=== PATIENT | female | born 1985 | race Two or more races ===

== ENCOUNTER 2024-04-21 08:24 | Emergency (ER) | payer MEDICAID, SELFPAY ==
--- NOTE | 2024-04-21 08:43 | XR_ITS ---
EXAMINATION: Ankle, right 3 views . Technique: Ankle AP, oblique, lateral 3 views Date and time of exam: April 21, 2024 0902 hrs. Indications: Running injury to the ankle yesterday ankle pain Findings: No fracture or dislocation Moderate osteoarthritis tibiotalar joint Impression: No fracture or dislocation
--- NOTE | 2024-04-21 08:43 | XR_ITS ---
Examination: Foot, right, 3 views Technique: AP, oblique, lateral views foot, 3 views Date and time of exam: April 21, 2024 0829 hrs. Indications: Running injury to the foot yesterday, foot pain Findings: No acute fracture No dislocation Moderate osteoarthritis tibiotalar joint Impression: No acute fracture
[2024-04-21 08:44] VITALS: BP 167/96; PULSE 82; RESP 19; TEMP 36.8; O2SAT 99; BMI 43.4
--- NOTE | 2024-04-21 09:56 | EDNOTE_ITS ---
Lower Extremity Injury RME/HPI General Chief Complaint: Extremity Injury, Lower Stated Complaint: RIGHT FOOT PAIN Time Seen by Provider: 04/21/24 08:26 Arrival date/time: 04/21/24 08:24 38-year-old female who reports she walks approximately 4 miles a day reports to the emergency department today complaints of right foot and ankle pain patient reports no direct trauma or injury patient reports no calf pain no upper leg pain Limitations: no limitations Related Data Previous Rx's ?Medication ?Instructions ?Recorded cephalexin 500 mg capsule (Keflex) 500 mg PO TID Infection #21 caps 03/14/20 acetaminophen 500 mg capsule 1,000 mg (2 x 500 mg) PO Q6H PRN 06/05/21 fever or pain #30 caps ibuprofen 800 mg tablet 800 mg PO TID PRN pain #30 tabs 06/05/21 sulfamethoxazole 800 1 tab PO BID #14 tabs 06/05/21 mg-trimethoprim 160 mg tablet (Bactrim DS) hydrocodone 5 mg-acetaminophen 325 1 tab PO BID PRN pain #6 tabs 04/21/24 mg tablet Allergies Allergy/AdvReac Type Severity Reaction Status Date / Time No Known Allergies Allergy Verified 03/11/20 20:17 Review of Systems Review of Systems Systems Reviewed: All systems reviewed, normal except as documented Constitutional Constitutional: Reports system reviewed and no additional complaints, except as documented, Denies fever(s) and Denies headache(s) Eyes Eyes: Reports system reviewed and no additional complaints, except as documented and Denies blurry vision ENT Ears, Nose, Mouth, and Throat: Reports system reviewed and no additional complaints, except as documented, Denies headache(s), Denies nasal congestion and Denies nasal discharge Cardiovascular Cardiovascular: Reports system reviewed and no additional complaints, except as documented, Denies chest pain and Denies dyspnea Respiratory Respiratory: Reports system reviewed and no additional complaints, except as documented, Denies chest congestion, Denies cough and Denies dyspnea Gastrointestinal Gastrointestinal: Reports system reviewed and no additional complaints, except as documented and Denies abdominal pain Musculoskeletal Musculoskeletal: Reports system reviewed and no additional complaints, except as documented, Reports arthralgias, Denies deformity and Reports joint swelling Integumentary/Breasts Skin/Breast: Reports system reviewed and no additional complaints, except as documented and Denies rash Neurologic Neurologic: Reports system reviewed and no additional complaints, except as documented, Reports as per HPI and Denies headache(s) Past Medical History Past Medical History NEUROLOGIC: Negative Neurological Disorders CARDIAC: Negative Cardiac Disorders ED Exam General Limitations: Present no limitations General appearance: Present alert and in no apparent distress Head Head exam: Present atraumatic, normocephalic and normal inspection Eye Eye exam: Present normal appearance, PERRL and EOMI ENT ENT exam: Present normal exam, normal oropharynx and mucous membranes moist Neck Neck exam: Present normal inspection, full ROM and trachea midline Chest Chest inspection: Present normal inspection and symmetric chest wall rise Respiratory Respiratory exam: Present normal lung sounds bilaterally Cardiovascular Cardiovascular exam: Present regular rate, normal rhythm and normal heart sounds Abdominal Exam Abdominal exam: Present soft and normal bowel sounds Extremities Exam Extremities exam: Present full ROM, tenderness, normal capillary refill and joint swelling; Absent pedal edema or calf tenderness Back Exam Back exam: Present normal inspection and full ROM Neurological Exam Neurological exam: Present alert, oriented X3 and CN II-XII intact Psychiatric Psychiatric exam: Present normal affect and normal mood Skin Skin exam: Present warm, dry, intact and normal color Course Quality Measures none Orders Category Date Time Status XR ankle comp RT min 3V Stat Exams 04/21/24 08:43 Completed XR foot comp RT min 3V Stat Exams 04/21/24 08:43 Completed Vital Signs Vital signs: Vital Signs Temperature 98.3 F 04/21/24 08:44 Pulse Rate 82 04/21/24 08:44 Respiratory Rate 19 04/21/24 08:44 Blood Pressure 167/96 H 04/21/24 08:44 Pulse Oximetry (%) 99 04/21/24 08:44 Oxygen Delivery Method Room Air 04/21/24 08:44 O2 saturation 99% room air within normal limits Extremity Injury, Lower MDM Narrative MDM Narrative:: 38-year-old female who reports she walks approximately 4 miles a day reports to the emergency department today complaints of right foot and ankle pain patient reports no direct trauma or injury patient reports no calf pain no upper leg pain On exam patient is mild swelling around the right ankle patient has no warmth no redness patient assures me she has no calf pain X-ray of right foot and ankle obtained no acute fracture dislocation noted Patient placed in Piotr wrap and given crutches Patient discharged home with pain medication Patient discharged home in no distress to follow-up with primary care doctor in the next 24 to 48 hours and for any worsening symptoms to return to the ER immediately Patient data External records reviewed:: [facility] previous records Clinical information provided by:: patient Social determinants that could affect healthcare access:: none Patient has the following chronic illnesses:: See history How is presenting disease/condition affected by chronic disease/condition?: uneffected by Evaluation data The following diagnostics were reviewed and interpreted by me:: radiology exam(s) Lab and/or radiology exams considered but not ordered:: Radiology obtained Interpretation Summary: Reviewed by me Medications / Prescriptions Medications or Prescriptions considered but not ordered:: Given Medication administrations:: Given Consultations Consultation(s) initiated? (list below): No Diagnosis Extremity Injury, Lower Differential Diagnosis: ankle sprain and strain and ankle fracture Most likely diagnosis given after review of the tests above:: Foot sprain, ankle sprain Admission Indicated Admission indicated?: not indicated Admission Request Was there a request for admission?: No Disposition Plan Disposition Plan: Discharge Discharge Attestation Discharge Attestation: The patient and all family members were given an opportunity to ask questions and understood the discharge instructions. Discharge instructions specifically effects, indications for sooner follow up or return to the emergency department, and the expected course of current diagnosis. Patient condition: Stable Discharge Plan Plan Patient Disposition: HOME (Self Care) Disposition Comment: Stable Prescriptions/Referrals Prescriptions/Med Rec: New hydrocodone-acetaminophen 5-325 mg tablet 1 tab PO BID MDD 10 PRN (Reason: pain) Qty: 6 0RF No Action ibuprofen 800 mg tablet 800 mg PO TID PRN (Reason: pain) Qty: 30 0RF sulfamethoxazole-trimethoprim [Bactrim DS] 800-160 mg tablet 1 tab PO BID Qty: 14 0RF acetaminophen 500 mg capsule 1,000 mg PO Q6H PRN (Reason: fever or pain) Qty: 30 0RF cephalexin [Keflex] 500 mg Capsule 500 mg PO TID Qty: 21 0RF Referrals: Wesley Ang MD [Primary Care Provider] - 04/23/24 Problem List Clinical Impression: Acute ankle pain Patient/Caregiver Discharge Instructions Education Materials: ED Foot Sprain Additional Instructions: Please follow up with your primary care doctor in the next 24-48hrs for any worsening symptoms return here immediately Print Language: Algerian Stand Alone Forms: [facility] Award Info., Work/School Release, Patient Portal Info Letter PA/[facility] Supervising Physician KAYCE/RONALD Supervising Physician: Dr. Pierre
== END 2024-04-21 10:11 | disposition home or self-care (01) ==
PROVIDERS: Emergency Provider Emergency Medicine; PCP Family Medicine
DX: S99.911A Unspecified injury of right ankle, initial encounter (principal); S99.921A Unspecified injury of right foot, initial encounter; X58.XXXA Exposure to other specified factors, initial encounter; Y93.02 Activity, running
CPT/HCPCS: 73610; 73630; 99283

== ENCOUNTER 2024-07-10 10:39 | Emergency (ER) | payer MEDICAID, SELFPAY ==
--- NOTE | 2024-07-10 10:49 | XR_ITS ---
Examination: Duplex scan of the lower extremity, unilateral right complete Date and time of exam: July 10, 2024 1109 hours INDICATIONS: Right leg swelling redness and pain beginning 4 days ago Technique: Duplex scan of the extremity veins using B-mode/grayscale imaging and Doppler spectral analysis and color flow Attention is directed to internal echogenicity, compression and augmentation involving these veins, color flow assessment, spectral analysis Findings: Major deep venous structures in the extremity demonstrate normal course and caliber. There is no evidence of deep vein thrombosis. Normal color flow and spectral analysis Impression: Negative for DVT.. Thrombus in a superficial vessel in the upper mid thigh
[2024-07-10 10:52] VITALS: BP 143/88; PULSE 86; RESP 20; TEMP 36.6; O2SAT 95; BMI 45.8
--- NOTE | 2024-07-10 11:57 | EDNOTE_ITS ---
<Statement entered by Madie Bill MD - 07/10/24 14:04> As co-signing physician, I was present and available for consult prn. I concur with the plan and care as documented by the midlevel provider. ED Extremity Problem RME/HPI General Chief complaint: Extremity Problem,Nontraumatic Stated complaint: BLOOD CLOT PAIN RIGHT THIGH X SAT Time Seen by Provider: 07/10/24 11:56 Arrival date/time: 07/10/24 10:39 38-year-old female presents emergency department today complaints of engorged varicose vein right upper leg ongoing since Tuesday patient concerned about blood clot patient came to rule out blood clot Limitations: no limitations Related Data Previous Rx's ?Medication ?Instructions ?Recorded cephalexin 500 mg capsule (Keflex) 500 mg PO TID Infec tion #21 caps 03/14/20 acetaminophen 500 mg capsule 1,000 mg (2 x 500 mg) PO Q6H PRN 06/05/21 fever or pain #30 caps ibuprofen 800 mg tablet 800 mg PO TID PRN pain #30 t abs 06/05/21 sulfamethoxazole 800 1 tab PO BID #14 tabs mg-trimethoprim 160 mg tablet (Bactrim DS) hydrocodone 5 mg-acetaminophen 325 1 tab PO BID PRN pa in #6 tabs 04/21/24 mg tablet Allergies Allergy/AdvReac Type Severity Reaction Status Date / Time No Known Allergies Allergy Verified 07/10/24 10:40 Review of Systems Review of Systems Systems Reviewed: All systems reviewed, normal except as documented Constitutional Constitutional: Reports system reviewed and no additional complaints, except as documented, Denies fever(s) and Denies headache(s) Eyes Eyes: Reports system reviewed and no additional complaints, except as documented and Denies blurry vision ENT Ears, Nose, Mouth, and Throat: Reports system reviewed and no additional complaints, except as documented, Denies headache(s), Denies nasal congestion and Denies nasal discharge Cardiovascular Cardiovascular: Reports system reviewed and no additional complaints, except as documented, Denies chest pain and Denies dyspnea Respiratory Respiratory: Reports system reviewed and no additional complaints, except as documented, Denies chest congestion, Denies cough and Denies dyspnea Gastrointestinal Gastrointestinal: Reports system reviewed and no additional complaints, except as documented and Denies abdominal pain Integumentary/Breasts Skin/Breast: Reports system reviewed and no additional complaints, except as documented, Denies rash and Reports other (Engorged varicose vein right upper leg) Neurologic Neurologic: Reports system reviewed and no additional complaints, except as documented, Reports as per HPI and Denies headache(s) Past Medical History Past Medical History NEUROLOGIC: Negative Neurological Disorders or Seizures CARDIAC: Negative Cardiac Disorders or Congestive Heart Failure RESPIRATORY: Negative Chronic Obstructive Pulmonary Disease (COPD) or Asthma GENITOURINARY: Negative Renal Disease REPRODUCTIVE: Negative Previous Pregnancies ENDOCRINE: Negative Diabetes Mellitus Type 1 or Diabetes Mellitus Type 2 HEMATOLOGIC: Negative Sickle Cell Disease OTHER HISTORY: Negative Blood Transfusions (N/A), Blood Transfusion Reaction (N/A) or Anesthesia Reactions (N/A) Social History SMOKING STATUS: Never smoker ED Exam General Limitations: Present no limitations General appearance: Present alert and in no apparent distress Head Head exam: Present atraumatic Eye Eye exam: Present normal appearance, PERRL and EOMI ENT ENT exam: Present normal exam, normal oropharynx and mucous membranes moist Neck Neck exam: Present normal inspection, full ROM and trachea midline Chest Chest inspection: Present normal inspection and symmetric chest wall rise Respiratory Respiratory exam: Present normal lung sounds bilaterally Cardiovascular Cardiovascular exam: Present regular rate, normal rhythm and normal heart sounds Abdominal Exam Abdominal exam: Present soft and normal bowel sounds Extremities Exam Extremities exam: Present full ROM, tenderness, normal capillary refill and other (Engorged varicose vein right upper leg) Back Exam Back exam: Present normal inspection and full ROM Neurological Exam Neurological exam: Present alert, oriented X3 and CN II-XII intact Psychiatric Psychiatric exam: Present normal affect and normal mood Skin Skin exam: Present warm, dry, intact and normal color Course Quality Measures none Orders Category Date Time Status US venous doppler LE RT Stat Exams 07/10/24 10:49 Completed Vital Signs Vital signs: Vital Signs Temperature 97.8 F 07/10/24 10:52 Pulse Rate 86 07/10/24 10:52 Respiratory Rate 20 07/10/24 10:52 Blood Pressure 143/88 H 07/10/24 10:52 Pulse Oximetry (%) 95 07/10/24 10:52 Oxygen Delivery Method Room Air 07/10/24 10:52 O2 saturation 95% room air within normal limits Extremity Problem MDM Narrative MDM Narrative:: 38-year-old female presents emergency department today complaints of engorged varicose vein right upper leg ongoing since Tuesday patient concerned about blood clot patient came to rule out blood clot On exam patient well-appearing patient's not appear ill or toxic patient does not appear in acute distress On exam patient appears to have engorged varicose vein right upper leg Ultrasound obtained no acute DVT noted Patient discharged home in no distress to follow-up with primary care doctor in the next 24 to 48 hours and for any worsening symptoms to return to the ER immediately Patient data External records reviewed:: [facility] previous records Clinical information provided by:: patient Social determinants that could affect healthcare access:: none Patient has the following chronic illnesses:: See history How is presenting disease/condition affected by chronic disease/condition?: uneffected by Evaluation data The following diagnostics were reviewed and interpreted by me:: radiology exam(s) Lab and/or radiology exams considered but not ordered:: Radiology obtain Interpretation Summary: Reviewed by me Medications / Prescriptions Medications or Prescriptions considered but not ordered:: Given no meds Medication administrations:: Given no meds Consultations Consultation(s) initiated? (list below): No Diagnosis Extremity Problem Differential Diagnosis: superficial thrombophlebitis, deep venous thrombosis of upper extremity and deep vein thrombosis of lower extremity Most likely diagnosis given after review of the tests above:: Superficial thrombus Admission Indicated Admission indicated?: not indicated Admission Request Was there a request for admission?: No Disposition Plan Disposition Plan: Discharge Discharge Attestation Discharge Attestation: The patient and all family members were given an opportunity to ask questions and understood the discharge instructions. Discharge instructions specifically effects, indications for sooner follow up or return to the emergency department, and the expected course of current diagnosis. Patient condition: Stable Discharge Plan Plan Patient Disposition: HOME (Self Care) Disposition Comment: Table Prescriptions/Referrals Prescriptions/Med Rec: No Action ibuprofen 800 mg tablet 800 mg PO TID PRN (Reason: pain) Qty: 30 0RF sulfamethoxazole-trimethoprim [Bactrim DS] 800-160 mg tablet 1 tab PO BID Qty: 14 0RF acetaminophen 500 mg capsule 1,000 mg PO Q6H PRN (Reason: fever or pain) Qty: 30 0RF cephalexin [Keflex] 500 mg Capsule 500 mg PO TID Qty: 21 0RF hydrocodone-acetaminophen 5-325 mg tablet 1 tab PO BID MDD 10 PRN (Reason: pain) Qty: 6 0RF Referrals: Wesley Ang MD [Primary Care Provider] - In 1 week Problem List Clinical Impression: Varicose vein of leg Patient/Caregiver Discharge Instructions Education Materials: ED Varicose Veins Additional Instructions: Please follow up with your primary care doctor in the next 24-48hrs for any worsening symptoms return here immediately Print Language: Vietnamese Stand Alone Forms: [facility] Award Info., Work/School Release, Patient Portal Info Letter PA/GLOVE SEWER Supervising Physician PA/GLOVE SEWER Supervising Physician: Dr. Bill
== END 2024-07-10 12:07 | disposition home or self-care (01) ==
PROVIDERS: Emergency Provider Emergency Medicine; PCP Family Medicine
DX: I83.811 Varicose veins of right lower extremity with pain (principal)
CPT/HCPCS: 93971; 99284

== ENCOUNTER 2024-07-25 18:10 | Emergency (ER) | payer MEDICAID, SELFPAY ==
[2024-07-25 18:19] VITALS: BP 153/92; PULSE 80; RESP 16; TEMP 36.6; O2SAT 99; BMI 45.3
--- NOTE | 2024-07-25 18:45 | PD.EDSKIN ---
ED Skin Abcess FB-RME/HPI General Chief complaint: Skin/Abscess/Foreign Body Stated complaint: BUMP TO RIGHT ARMPIT Time Seen by Provider: 07/25/24 18:26 Arrival date/time: 07/25/24 18:10 38-year-old female reports with complaints of a painful swollen bump the right axillary for several days. Patient states that she is noticed today that it increased in size after jogging and sweating a lot. She denies any fever chills nausea or vomiting numbness tingling loss of range of motion or weakness in the limb. Patient also reports not taking any medications for symptoms Limitations: no limitations Related Data Previous Rx's ?Medication ?Instructions ?Recorded cephalexin 500 mg capsule (Keflex) 500 mg PO TID Infection #21 caps 03/14/20 acetaminophen 500 mg capsule 1,000 mg (2 x 500 mg) PO Q6H PRN 06/05/21 fever or pain #30 caps ibuprofen 800 mg tablet 800 mg PO TID PRN pain #30 tabs 06/05/21 sulfamethoxazole 800 1 tab PO BID #14 tabs 06/05/21 mg-trimethoprim 160 mg tablet (Bactrim DS) hydrocodone 5 mg-acetaminophen 325 1 tab PO BID PRN pain #6 tabs 04/21/24 mg tablet sulfamethoxazole 800 1 tab PO BID 10 days #20 tabs 07/25/24 mg-trimethoprim 160 mg tablet (Bactrim DS) Allergies Allergy/AdvReac Type Severity Reaction Status Date / Time No Known Allergies Allergy Verified 07/10/24 10:40 Review of Systems Constitutional Constitutional: Denies chills and Denies fever(s) Cardiovascular Cardiovascular: Denies chest pain and Denies dyspnea Respiratory Respiratory: Denies cough and Denies dyspnea Gastrointestinal Gastrointestinal: Denies nausea and Denies vomiting Musculoskeletal Musculoskeletal: Denies deformity, Denies joint swelling, Denies numbness and Denies tingling Integumentary/Breasts Skin/Breast: Reports erythema and Reports furuncle (right axillary) Neurologic Neurologic: Denies numbness and Denies tingling Hematologic/Lymphatic Hematologic/Lymphatic: Denies easy bleeding and Denies easy bruising Past Medical History Past Medical History NEUROLOGIC: Negative Neurological Disorders or Seizures CARDIAC: Negative Cardiac Disorders or Congestive Heart Failure RESPIRATORY: Negative Chronic Obstructive Pulmonary Disease (COPD) or Asthma GENITOURINARY: Negative Renal Disease REPRODUCTIVE: Negative Previous Pregnancies ENDOCRINE: Negative Diabetes Mellitus Type 1 or Diabetes Mellitus Type 2 HEMATOLOGIC: Negative Sickle Cell Disease OTHER HISTORY: Negative Blood Transfusions (N/A), Blood Transfusion Reaction (N/A) or Anesthesia Reactions (N/A) Social History SMOKING STATUS: Never smoker ED Exam General Limitations: Present no limitations General appearance: Present alert and in no apparent distress Chest Chest inspection: Present normal inspection and symmetric chest wall rise Respiratory Respiratory exam: Present normal lung sounds bilaterally Cardiovascular Cardiovascular exam: Present regular rate, normal rhythm and normal heart sounds Extremities Exam Extremities exam: Present other (right axillary with 2 cm nonfluccuant, tedner abscess no d/c noted, pulses/reflexes 2+, sensory intact, strength 5/5) Neurological Exam Neurological exam: Present alert, oriented X3 and CN II-XII intact Psychiatric Psychiatric exam: Present normal affect and normal mood Skin Skin exam: Present warm, dry, intact and normal color Course Quality Measures none Orders Category Date Time Status 1,000 mg IM w/Lido* 1% Med 07/25/24 18:45 Ordered cefTRIAXone [Rocephin] 1,000 mg Lidocaine 1% 20 ml [Xylocaine 1% 20 ML] 2.1 ml IM X1 Vital Signs Vital signs: Vital Signs Temperature 97.9 F 07/25/24 18:19 Pulse Rate 80 07/25/24 18:19 Respiratory Rate 16 07/25/24 18:19 Blood Pressure 153/92 H 07/25/24 18:19 Pulse Oximetry (%) 99 07/25/24 18:19 Oxygen Delivery Method Room Air 07/25/24 18:19 Skin / Abscess / Foreign Body Patient data External records reviewed:: None Clinical information provided by:: patient Social determinants that could affect healthcare access:: none Patient has the following chronic illnesses:: none How is presenting disease/condition affected by chronic disease/condition?: no chronic disease Evaluation data The following diagnostics were reviewed and interpreted by me:: other (specify) (none) Lab and/or radiology exams considered but not ordered:: none Interpretation Summary: n/a Medications / Prescriptions Medications or Prescriptions considered but not ordered:: none Medication administrations:: Rocephin Consultations Consultation(s) initiated? (list below): No Diagnosis Skin/Abscess Differential Diagnosis: abscess of skin or subcutaneous tissue, cellulitis and insect bites Most likely diagnosis given after review of the tests above:: Axillary abscess Admission Indicated Admission indicated?: not indicated Admission Request Was there a request for admission?: No Disposition Plan Disposition Plan: Discharge Discharge Attestation Discharge Attestation: The patient and all family members were given an opportunity to ask questions and understood the discharge instructions. Discharge instructions specifically effects, indications for sooner follow up or return to the emergency department, and the expected course of current diagnosis. Patient condition: Stable Discharge Plan Plan Patient Disposition: HOME (Self Care) Prescriptions/Referrals Prescriptions/Med Rec: New sulfamethoxazole-trimethoprim [Bactrim DS] 800-160 mg tablet 1 tab PO BID 10 Days Qty: 20 0RF No Action ibuprofen 800 mg tablet 800 mg PO TID PRN (Reason: pain) Qty: 30 0RF sulfamethoxazole-trimethoprim [Bactrim DS] 800-160 mg tablet 1 tab PO BID Qty: 14 0RF acetaminophen 500 mg capsule 1,000 mg PO Q6H PRN (Reason: fever or pain) Qty: 30 0RF cephalexin [Keflex] 500 mg Capsule 500 mg PO TID Qty: 21 0RF hydrocodone-acetaminophen 5-325 mg tablet 1 tab PO BID MDD 10 PRN (Reason: pain) Qty: 6 0RF Problem List Clinical Impression: Abscess of axilla, right Patient/Caregiver Discharge Instructions Discharge Activity: activity as tolerated Education Materials: ED Abscess Antibiotic ... Additional Instructions: Take antibiotics as directed do not apply warm compresses do not attempt to squeeze the abscess keep the area clean and dry follow-up with your primary care provider in 48 hours for reevaluation Print Language: [place] Stand Alone Forms: [facility] Award Info., Patient Portal Info Letter
[2024-07-25] MEDS: cefTRIAXone 1,000 MG, LIDOCAINE 1% 20 ML 2.1 ML IM (18:55)
== END 2024-07-25 18:57 | disposition home or self-care (01) ==
PROVIDERS: Emergency Provider Emergency Medicine; PCP Family Medicine
DX: L02.411 Cutaneous abscess of right axilla (principal)
CPT/HCPCS: 96372; 99283; J0696; J3490